=== PATIENT | male | born 2000 | race Caucasian/White ===

== ENCOUNTER 2024-02-02 02:20 | Observation (INO) ==
[2024-02-02 03:41] LABS: Rapid Strep Molecular Negative (Negative)
[2024-02-02] MEDS ORDERED: Famotidine IV 10 MG/ML 2 ml VIAL (20 mg) ONE (04:38)
[2024-02-02] MEDS ORDERED: EPINEPHrine Anaphylaxis SYR CERTADOSE SYR KIT ONE (04:38)
[2024-02-02] MEDS: EPINEPHrine Anaphylaxis SYR CERTADOSE SYR KIT IM ONE (04:41)
[2024-02-02] MEDS: Famotidine IV 10 MG/ML 2 ml VIAL (20 mg) IV SLOW PU ONE (04:48)
[2024-02-02] MEDS: methylPREDNISolone SOD SUCC 125 mg 2 ML VIAL IV ONE (04:48)
[2024-02-02 05:04] LABS: ABS Basophils 0.1 10^3/uL (0.0-0.1); ABS Eosinophils 0.3 10^3/uL (0.0-0.5); ABS Lymphocytes 3.1 10^3/uL (1.0-4.8); ABS Monocytes 1.2 10^3/uL (0.0-1.1); ABS Neutrophils 5.9 10^3/uL (1.5-7.6); ABS Nucleated RBC 0.01 10^3/ul; Eosinophil % 2.8 %; Hematocrit 45.9 % (38-53); Hemoglobin 15.8 g/dL (13.2-16.3); Lymphocyte % 29.4 %; Mean Corpuscular Hgb Conc 34.4 g/dL (31-36); Mean Corpuscular Volume 87.2 fL (80-97); Mean Platelet Volume 8.4 fL (7.5-11.2); Nucleated Red Blood Cells % 0.1 %/100WBC (0.0-0.8); Platelet Count 227 10^3/uL (150-450); Red Blood Count 5.27 10^6/uL (4.06-5.63); Red Cell Distribution Width 13.2 % (12-17); White Blood Count 10.6 10^3/uL (3.6-10.2)
[2024-02-02] MEDS: C1 Esterase Inhib (Human) 500 UNIT INJ IV ONE (05:24)
[2024-02-02 05:47] LABS: Albumin 5.1 g/dL (3.2-5.2); Albumin/Globulin Ratio 2.2 (1-3); Calcium 9.7 mg/dL (8.6-10.3); Creatinine, Serum 1.03 mg/dL (0.67-1.17); Globulin 2.3 g/dL (2-4); Potassium 4.3 mmol/L (3.5-5.0); Total Bilirubin 0.4 mg/dL (0.2-1.0); Total Protein 7.4 g/dL (6.4-8.9); eGFR CKD-EPI 102.7 (>60)
[2024-02-03 06:39] LABS: ABS Lymphocytes 2.1 10^3/uL (1.0-4.8); ABS Monocytes 1.2 10^3/uL (0.0-1.1); ABS Neutrophils 13.2 10^3/uL (1.5-7.6); ABS Nucleated RBC 0.01 10^3/ul; Eosinophil % 0.1 %; Hematocrit 42.8 % (38-53); Hemoglobin 14.7 g/dL (13.2-16.3); Lymphocyte % 12.8 %; Mean Corpuscular Hemoglobin 29.8 pg (27-33); Mean Corpuscular Hgb Conc 34.4 g/dL (31-36); Mean Corpuscular Volume 86.5 fL (80-97); Mean Platelet Volume 8.7 fL (7.5-11.2); Nucleated Red Blood Cells % 0.1 %/100WBC (0.0-0.8); Platelet Count 226 10^3/uL (150-450); Red Blood Count 4.94 10^6/uL (4.06-5.63); Red Cell Distribution Width 13.3 % (12-17); White Blood Count 16.5 10^3/uL (3.6-10.2)
[2024-02-03 08:05] LABS: Albumin 4.3 g/dL (3.2-5.2); Calcium 9.4 mg/dL (8.6-10.3); Creatinine, Serum 0.82 mg/dL (0.67-1.17); Globulin 2.1 g/dL (2-4); Potassium 4.1 mmol/L (3.5-5.0); Total Bilirubin 0.4 mg/dL (0.2-1.0); Total Protein 6.4 g/dL (6.4-8.9); eGFR CKD-EPI 124.2 (>60)
[2024-02-03 09:46] VITALS: BP 160/91
== END 2024-02-03 10:35 | disposition home or self-care (01) ==
LOC: ED 02:20 → EDHOLD 02:20 → MED 20:55
PROVIDERS: ADMIT Internal Medicine; ATTEND Internal Medicine